=== PATIENT | female | born 1990 | race Caucasian/White ===

== ENCOUNTER 2019-12-17 11:49 | Day surgery (SDC) | payer BC ==
[2019-12-17] VITALS (7 sets, daily range): BP systolic 92–118; BP diastolic 66–86; PULSE 64–77; TEMP 97.8–98
[~2019-12-17] VITALS: Ht 149.9 cm; Wt 50.3 kg
[2019-12-17] MEDS ORDERED: ZOFRAN 4MG T4 MG/TAB PO (12:28)
[2019-12-17] MEDS ORDERED: PERCOCET 325 MG1 TA2 PO (12:29)
--- NOTE | 2019-12-17 12:30 | NUR ---
TO DEB AT 1157- CALL LIGHT IN REACH FRIEND XENIA AT BEDSIDE.
--- NOTE | 2019-12-17 14:20 | NUR ---
Patient arrives to [facility] via cart, accompanied by [facility] RN Chanel. Bedside report received. Patient is awake, alert, complains of nausea and pain. She rates her pain as a 5/10 "not sharp, but not dull" in the RUQ. She states it is the same pain as pre-procedure and that it causes her nausea. She was given Zofran for nausea in the procedure room. She ambulates to the chair in the room and monitoring is applied for VS - VSS and WNL on room air. Her ride had to go to an appointment and will be back later. CASE from Dr. Leslie that she may discharge home at 1555.
--- NOTE | 2019-12-17 14:39 | NUR ---
VSS and WNL on room air. Nausea is improved. Pain remains unchanged 03/20. Patient states "I can tough it out, I have been for the last month". Dr. Leslie's phone number is called and it rings to voicemail. Voicemail left regarding patient's pain with call back number to reach nursing staff.
--- NOTE | 2019-12-17 14:55 | NUR ---
Dr. Franks notified of patient's pain. VORB received for PO Percocet.
--- NOTE | 2019-12-17 15:05 | NUR ---
Dr. Franks talks with the patient at the bedside. Patient states that her pain is now gone. She denies nausea. Resting comfortably in room.
--- NOTE | 2019-12-17 15:20 | NUR ---
patient requests and receives juice to drink - tolerates well
--- NOTE | 2019-12-17 15:20 | NUR ---
Patient is sleeping in the recliner.
--- NOTE | 2019-12-17 16:20 | NUR ---
Patient has met discharge criteria. PIV removed with catheter intact and hemostasis achieved. Discharge instructions discussed, denies questions, and verbalizes understanding. Changes to clothing independently. SHe is escorted to the exit via wheelchair. Discharged to home with ride in private vehicle at 1620.
== END 2019-12-17 16:20 | disposition home or self-care (01) ==
LOC: SDCO 11:49
DX: K80.20 Calculus of gallbladder without cholecystitis without obstruction (principal); K83.8 Other specified diseases of biliary tract
CPT/HCPCS: C1769; J1610; J2405; J2704; J7120; Q9967